=== PATIENT | female | born 1945 | race Caucasian/White ===

== ENCOUNTER → 2016-08-02 | Outpatient (CLI) | payer MEDICARE, OTHER ==
[~2016-08-02] MED LIST: ADIPEX-P37.5 MG PO; ADVIL200 MG PO; ALAVERT10 M1 PO; AMARYL 2MG T2 MG/TAB PO; ASPI325T6 PO; ASPIRIN 81M81 MG/TA2 PO; B-12 250 MCG; BENADRYL25 M2 PO; BENTYL 10MG10 MG/CAP PO; BYDUREON2MG SQ; CYMBALTA 60MG60 MG PO; HAIRSKINNAILS PO; INFANTS AQU400 IU/ML; IRON325 M1 PO; KLOR-CON 1010 MEQ PO; LASIX 20MG TABL20 MG PO; LOMOTIL 0.025 M1 TAB PO; LUTEIN6 MG; LYRICA 75MG CAP75 MG PO; MELAT3MGTAB PO; MOBIC15 MG PO; MYBETRIQ PO; MYRBETR25MG PO; NORCO 325 MG-51 TAB PO; PHENTERMINE15 MG; PLAQUENIL 200M200 MG PO; POTASSIUM GLUC550 M1 PO; PRILOSEC 20MG20 MG PO; PROTONIX 40MG T40 MG PO; SYNTHROID0.125 MG/T PO; SYNTHROID0.137 MG; SYNTHROID0.137 MG PO; SYNTHROID0.2 MG/TAB PO; ULTRAM 50MG TAB50 MG PO; VITAMINE200; ZESTRIL2.5 MG PO
== END ==
LOC: COL.RAD 10:29
DX: M25.562 Pain in left knee (principal)

== ENCOUNTER 2016-08-15 13:00 | Outpatient (RCR) | payer MEDICARE, OTHER | END 2016-08-16 | disposition home or self-care (01) | LOC: WSPT | DX: M54.89 Other dorsalgia (principal); M25.562 Pain in left knee; M25.561 Pain in right knee | CPT/HCPCS: G8978-GP; G8979-GP ==

== ENCOUNTER 2016-09-05 14:00 | Outpatient (RCR) | payer MEDICARE, OTHER | END 2016-09-23 10:24 | disposition home or self-care (01) | LOC: WSPT 14:00 | DX: M54.5 Low back pain (principal); Z98.1 Arthrodesis status | CPT/HCPCS: G8978-GP; G8979-GP; G8980-GP ==

== ENCOUNTER → 2017-07-27 | Outpatient (CLI) | payer MEDICARE, OTHER | LOC: COL.RAD 11:46 | DX: Z87.442 Personal history of urinary calculi (principal); I72.2 Aneurysm of renal artery | CPT/HCPCS: Q9967 ==

== ENCOUNTER → 2019-04-09 | Outpatient (CLI) | payer MEDICARE, OTHER | LOC: DIA.ED 02-13 09:07 | DX: E11.40 Type 2 diabetes mellitus with diabetic neuropathy, unspecified (principal); E78.5 Hyperlipidemia, unspecified; I10 Essential (primary) hypertension; E03.9 Hypothyroidism, unspecified; E66.9 Obesity, unspecified ==

== ENCOUNTER → 2019-07-16 | Outpatient (CLI) | payer MEDICARE, OTHER | LOC: MHCPAIN 10:15 | DX: M47.817 Spondylosis without myelopathy or radiculopathy, lumbosacral region (principal); M54.16 Radiculopathy, lumbar region | CPT/HCPCS: G0463 ==

== ENCOUNTER → 2019-07-25 | Outpatient (CLI) | payer MEDICARE, OTHER | LOC: MHCPAIN 10:34 | DX: M54.5 Low back pain (principal); M53.3 Sacrococcygeal disorders, not elsewhere classified ==

== ENCOUNTER → 2019-08-05 | Outpatient (CLI) | payer MEDICARE, OTHER | LOC: MHCPAIN 09:53 | DX: M53.3 Sacrococcygeal disorders, not elsewhere classified (principal); M96.1 Postlaminectomy syndrome, not elsewhere classified; M47.817 Spondylosis without myelopathy or radiculopathy, lumbosacral region; E11.9 Type 2 diabetes mellitus without complications; Z79.4 Long term (current) use of insulin | CPT/HCPCS: G0463 ==

== ENCOUNTER 2019-08-20 07:59 | Day surgery (SDC) | payer MEDICARE, OTHER ==
[~2019-08-20] VITALS: Ht 162.6 cm; Wt 131.6 kg
[2019-08-20] MEDS ORDERED: MULTAQ400 MG PO (08:54)
[2019-08-20] MEDS ORDERED: LOPRESSOR 225 MG/TAB PO (08:55)
[2019-08-20] MEDS ORDERED: XARELTO20 MG PO (08:55)
== END 2019-08-20 09:30 | disposition home or self-care (01) ==
LOC: COL.CAR 07:59
DX: I48.91 Unspecified atrial fibrillation (principal); J45.909 Unspecified asthma, uncomplicated; E78.5 Hyperlipidemia, unspecified; I10 Essential (primary) hypertension; E03.9 Hypothyroidism, unspecified; M06.862 Other specified rheumatoid arthritis, left knee; M06.861 Other specified rheumatoid arthritis, right knee; G89.29 Other chronic pain; E11.42 Type 2 diabetes mellitus with diabetic polyneuropathy; Z79.01 Long term (current) use of anticoagulants; Z85.828 Personal history of other malignant neoplasm of skin; Z88.2 Allergy status to sulfonamides; Z88.5 Allergy status to narcotic agent; Z88.1 Allergy status to other antibiotic agents; Z88.8 Allergy status to other drugs, medicaments and biological substances; Z88.0 Allergy status to penicillin; Z79.51 Long term (current) use of inhaled steroids; Z79.4 Long term (current) use of insulin; Z87.891 Personal history of nicotine dependence; Z53.8 Procedure and treatment not carried out for other reasons
CPT/HCPCS: J2704

== ENCOUNTER 2019-08-27 11:45 | Outpatient (RCR) | payer MEDICARE, OTHER ==
[~2019-08-27 11:45] MED LIST changes: +LOPRESSOR 225 MG/TAB PO; +MULTAQ400 MG PO; +XARELTO20 MG PO
== END 2019-11-04 | disposition home or self-care (01) ==
LOC: WSPT
DX: M53.3 Sacrococcygeal disorders, not elsewhere classified (principal); M96.1 Postlaminectomy syndrome, not elsewhere classified; M54.16 Radiculopathy, lumbar region; M47.817 Spondylosis without myelopathy or radiculopathy, lumbosacral region

== ENCOUNTER → 2019-11-11 | Outpatient (CLI) | payer MEDICARE, OTHER | LOC: MHCPAIN 08-15 15:59 | DX: M47.817 Spondylosis without myelopathy or radiculopathy, lumbosacral region (principal); M54.5 Low back pain; M96.1 Postlaminectomy syndrome, not elsewhere classified; M53.3 Sacrococcygeal disorders, not elsewhere classified; G89.29 Other chronic pain | CPT/HCPCS: G0463 ==

== ENCOUNTER → 2019-11-18 | Outpatient (CLI) | payer MEDICARE, OTHER | LOC: MC.RAD 09:15 | DX: R92.2 Inconclusive mammogram (principal) | CPT/HCPCS: G0279 ==

== ENCOUNTER → 2020-02-11 | Outpatient (CLI) | payer MEDICARE, OTHER | LOC: MHCPAIN 09:38 | DX: M96.1 Postlaminectomy syndrome, not elsewhere classified (principal); M54.5 Low back pain; M53.3 Sacrococcygeal disorders, not elsewhere classified; E66.01 Morbid (severe) obesity due to excess calories; E11.9 Type 2 diabetes mellitus without complications; I48.91 Unspecified atrial fibrillation ==

== ENCOUNTER → 2020-02-13 | Outpatient (CLI) | payer MEDICARE, OTHER | LOC: MHCPAIN 13:14 | DX: M47.817 Spondylosis without myelopathy or radiculopathy, lumbosacral region (principal); M54.5 Low back pain; M53.3 Sacrococcygeal disorders, not elsewhere classified ==

== ENCOUNTER → 2020-02-20 | Outpatient (CLI) | payer MEDICARE, OTHER | LOC: MHCPAIN 12:11 | DX: M47.817 Spondylosis without myelopathy or radiculopathy, lumbosacral region (principal); M54.5 Low back pain; M53.3 Sacrococcygeal disorders, not elsewhere classified; M96.1 Postlaminectomy syndrome, not elsewhere classified; G89.29 Other chronic pain | CPT/HCPCS: G0463; J3010 ==

== ENCOUNTER → 2020-02-27 | Outpatient (CLI) | payer MEDICARE, OTHER | LOC: MHCPAIN 08:32 | DX: M47.817 Spondylosis without myelopathy or radiculopathy, lumbosacral region (principal); M54.5 Low back pain | CPT/HCPCS: J2250; J3010 ==

== ENCOUNTER → 2020-05-12 | Outpatient (CLI) | payer MEDICARE, OTHER | LOC: MHCPAIN 13:08 | DX: M47.817 Spondylosis without myelopathy or radiculopathy, lumbosacral region (principal); M96.1 Postlaminectomy syndrome, not elsewhere classified; M54.5 Low back pain; G89.29 Other chronic pain | CPT/HCPCS: G0463 ==

== ENCOUNTER → 2020-06-15 | Outpatient (RCR) | payer MEDICARE, OTHER | END | disposition home or self-care (01) | LOC: WSPT → WSC 02-25 11:00 → WSPT 04-14 14:00 → WSC 04-16 13:00 → WSPT 04-24 13:00 | DX: M47.817 Spondylosis without myelopathy or radiculopathy, lumbosacral region (principal); M53.3 Sacrococcygeal disorders, not elsewhere classified; M96.1 Postlaminectomy syndrome, not elsewhere classified ==

== ENCOUNTER → 2020-08-10 | Outpatient (CLI) | payer MEDICARE, OTHER | LOC: MHCPAIN 10:16 | DX: M47.817 Spondylosis without myelopathy or radiculopathy, lumbosacral region (principal); M96.1 Postlaminectomy syndrome, not elsewhere classified; M54.5 Low back pain; G89.29 Other chronic pain | CPT/HCPCS: G0463 ==

== ENCOUNTER → 2020-11-10 | Outpatient (CLI) | payer MEDICARE, OTHER | LOC: MHCPAIN 10:28 | DX: M47.816 Spondylosis without myelopathy or radiculopathy, lumbar region (principal); M96.1 Postlaminectomy syndrome, not elsewhere classified; M53.3 Sacrococcygeal disorders, not elsewhere classified; M54.5 Low back pain | CPT/HCPCS: G0463 ==

== ENCOUNTER → 2021-03-16 | Outpatient (CLI) | payer MEDICARE, OTHER | LOC: MHCPAIN 11:13 | DX: M47.816 Spondylosis without myelopathy or radiculopathy, lumbar region (principal); M53.3 Sacrococcygeal disorders, not elsewhere classified; M79.2 Neuralgia and neuritis, unspecified; M96.1 Postlaminectomy syndrome, not elsewhere classified | CPT/HCPCS: G0463 ==

== ENCOUNTER → 2021-06-21 | Outpatient (CLI) | payer MEDICARE, OTHER | LOC: MHCPAIN 10:09 | DX: M47.817 Spondylosis without myelopathy or radiculopathy, lumbosacral region (principal); M96.1 Postlaminectomy syndrome, not elsewhere classified; M54.50 Low back pain, unspecified; M53.3 Sacrococcygeal disorders, not elsewhere classified | CPT/HCPCS: G0463 ==

== ENCOUNTER → 2021-07-13 | Outpatient (CLI) | payer MEDICARE, OTHER | LOC: MHCPAIN 12:28 | DX: M47.817 Spondylosis without myelopathy or radiculopathy, lumbosacral region (principal); M54.50 Low back pain, unspecified; M53.3 Sacrococcygeal disorders, not elsewhere classified ==

== ENCOUNTER → 2021-09-02 | Outpatient (CLI) | payer MEDICARE, OTHER | LOC: MHCPAIN 10:04 | DX: M47.817 Spondylosis without myelopathy or radiculopathy, lumbosacral region (principal); M54.50 Low back pain, unspecified; M53.3 Sacrococcygeal disorders, not elsewhere classified | CPT/HCPCS: J2250; J3010 ==

== ENCOUNTER → 2021-09-15 | Outpatient (CLI) | payer MEDICARE, OTHER | LOC: MHCPAIN 10:26 | DX: M47.896 Other spondylosis, lumbar region (principal); M53.3 Sacrococcygeal disorders, not elsewhere classified; M96.1 Postlaminectomy syndrome, not elsewhere classified; M79.2 Neuralgia and neuritis, unspecified | CPT/HCPCS: G0463 ==

== ENCOUNTER → 2022-01-12 | Outpatient (CLI) | payer MEDICARE, OTHER | LOC: MHCPAIN 10:57 | DX: M54.50 Low back pain, unspecified (principal); M47.817 Spondylosis without myelopathy or radiculopathy, lumbosacral region; M96.1 Postlaminectomy syndrome, not elsewhere classified; E11.65 Type 2 diabetes mellitus with hyperglycemia; Z79.4 Long term (current) use of insulin | CPT/HCPCS: G0463 ==

== ENCOUNTER → 2022-04-19 | Outpatient (CLI) | payer MEDICARE, OTHER | LOC: MHCPAIN 10:32 | DX: M54.50 Low back pain, unspecified (principal); M96.1 Postlaminectomy syndrome, not elsewhere classified; M47.896 Other spondylosis, lumbar region; M53.3 Sacrococcygeal disorders, not elsewhere classified | CPT/HCPCS: G0463 ==

== ENCOUNTER 2023-03-27 15:32 | Inpatient (IN) | payer MEDICARE ==
[2023-04-03] VITALS (9 sets, daily range): BP systolic 120–154; BP diastolic 56–61; PULSE 67–79; TEMP 97.5–98.5
--- NOTE | 2023-04-03 10:00 | NUR ---
PT IS A DIRECT ADMIT FROM FOR FOR AMIODARONE INITIATION WITH . PT IS AXOX4. PT IS ON RA. DAUGHTER BEDSIDE. NOTIFIED OF ARRIVAL. ADMISSION COMPLETED. PT ORIENTED TO ROOM AND FLOOR. PT INSTRUCTED TO CALL WITH ALL NEEDS AND NOT TO GET UP WITHOUT ASSISTANCE.
[2023-04-03] MEDS ORDERED: PRAVACHOL 40MG40 MG PO (10:17)
[2023-04-03] MEDS ORDERED: SPIRIVA RE2.5 MCG/Ac IH (10:17)
[2023-04-03] MEDS ORDERED: TOPROL XL 25MG25 MG PO (10:18)
[2023-04-03] MEDS ORDERED: PRILOSEC 20MG20 MG PO (10:18)
[2023-04-03] MEDS ORDERED: LANTUS SOLOS100 U/ML SQ (10:19)
[2023-04-03] MEDS ORDERED: SYNTHROID 0.10.15 MG PO (10:22)
[2023-04-03] MEDS ORDERED: GEMTESA75 MG PO (10:22)
[2023-04-03] MEDS ORDERED: GLUCOTROL 5M5 MG/TAB PO (10:23)
[2023-04-03] MEDS ORDERED: PLAQUENIL 200M200 MG PO (10:24)
[2023-04-03] MEDS ORDERED: ELIQUIS 5MG PO (10:25)
[2023-04-03] MEDS ORDERED: NIZORAL SHAMPO120 M1 TP (10:26)
[2023-04-03] MEDS ORDERED: IPRATROPIUM BROM3 M1 IH (10:27)
[2023-04-03] MEDS ORDERED: SYNALAR TP (10:30)
[2023-04-03] MEDS ORDERED: ULTRAM 50MG TAB50 MG PO (10:38)
[2023-04-03 12:21] LABS: INR 1.3 (0.8-3.0); PROTHROMBIN TIME 13.6 SECONDS (9.7-12.8)
[2023-04-03 12:32] LABS: HEMATOCRIT 39.3 % (37.0-47.0); HEMOGLOBIN 12.6 g/dl (12.5-16.0); MEAN CELL VOLUME 91 fl (80.0-100.0); MEAN CORPUSCULAR HEMOGLOBIN 29 pg (27-31); MEAN CORPUSCULAR HGB CONC 32 g/dl (33.0-37.0); MEAN PLATELET VOLUME 11.3 fl (7.4-10.4); PLATELET COUNT 208 K/mm3 (130-400); RED BLOOD COUNT 4.31 M/mm3 (4.10-5.30)
[2023-04-03 12:43] LABS: BASOPHIL 1 % (0-2); EOSINOPHIL 8 % (0-4); LYMPHOCYTE 32 % (20.0-51.0); NEUTROPHILS 51 % (42.0-75.2); PLATELET ESTIMATE NORMAL (NORMAL)
[2023-04-03 13:47] LABS: ALBUMIN 3.6 gm/dL (3.4-4.8); BILIRUBIN,TOTAL 0.5 mg/dL (0.2-1.2); CALCIUM 9.3 mg/dL (8.4-10.2); CREATININE, serum 1.3 mg/dL (0.57-1.11); TOTAL PROTEIN 7.3 gm/dL (6.2-8.1)
--- NOTE | 2023-04-03 14:48 | NUR ---
SPOKE WITH ALEXANDER IN PHARMACY REGARDING TID DOSING AND INITIAL DOSE GIVEN AROUND NOON. SHE STATED OKAY TO GIVEN SECOND DOSE AROUND 1400. PAGEIvan MIR RN WITH CARDIOLOGY TO CLARIFY OK TO GIVE SECOND DOSE AT AROUND 1500 SINCE INITIAL DOSE GIVEN AROUND 1200 AND POST EKG IS DUE AT 1600. STATES OK TO GIVE SECOND DOSE AT 1500.
--- NOTE | 2023-04-03 20:58 | NUR ---
Patient awake, alert and oriented. States she is tired after a long day. Eating dinner. Denies pain, shortness of breath or nausea. Bed in lowest position with call light within reach, denies further needs at this time.
[2023-04-04] VITALS (11 sets, daily range): BP systolic 117–176; BP diastolic 41–67; PULSE 56–78; TEMP 97.2–98.3
[2023-04-04] MEDS ORDERED: BENADRYL25 M2 PO (06:12)
--- NOTE | 2023-04-04 06:47 | NUR ---
Patient able to sleep well in the night, woke up this morning with complaints of itching. Patient assisted to bathe, lotion applied. Denies pain or shortness of breath. Bed in lowest position with call light within reach, bed alarm on.
--- NOTE | 2023-04-04 07:00 | NUR ---
PT RESTING IN BED. PT IS SLOW AFIB ON TELE. PT IS ON RA. PT IS AXOX3 AND HAS CALL LIGHT WITHIN REACH. PT INSTRUCTED TO CALL [facility] ALL NEEDS. BEDALARM ACTIVE. FALL PRECATUTIONS IN PLACE.
[2023-04-04 07:01] LABS: BASO # 0.1 K/mm3 (0.0-0.2); BASO % 1.8 % (0.0-2.0); EOS # 0.4 K/mm3 (0.0-0.7); EOS % 5.9 % (0.0-4.0); GRAN # 3.5 K/mm3 (1.4-6.5); GRAN % 57.6 % (42.2-75.2); HEMATOCRIT 37.7 % (37.0-47.0); HEMOGLOBIN 12.3 g/dl (12.5-16.0); LYMPH # 1.6 K/mm3 (1.2-3.4); LYMPH % 25.6 % (20.0-51.0); MEAN CELL VOLUME 92 fl (80.0-100.0); MEAN CORPUSCULAR HEMOGLOBIN 30 pg (27-31); MEAN CORPUSCULAR HGB CONC 33 g/dl (33.0-37.0); MEAN PLATELET VOLUME 10.6 fl (7.4-10.4); MONO # 0.5 K/mm3 (0.1-0.6); MONO % 8.8 % (1.7-9.3); PLATELET COUNT 224 K/mm3 (130-400); RED BLOOD COUNT 4.12 M/mm3 (4.10-5.30)
[2023-04-04 07:10] LABS: CREATININE, serum 1.35 mg/dL (0.57-1.11); POTASSIUM 3.9 mmol/L (3.5-4.5)
--- NOTE | 2023-04-04 09:20 | NUR ---
Initial visit; Patient thanked Weighmaster Lead for looking in on her and asking about her health, her support system and how she is coping. Sanjana speaks about her treatment today and in the future 'for A-Fib' with Dr. Ta. Sanjana understands that she is in good hands and was very glad for Weighmaster Lead's prayers.
--- NOTE | 2023-04-04 15:13 | NUR ---
LOCAL COMPANY HAZMAT DRIVER reviewed pt's clinical record and noted she was admitted yesterday for AFib. LOCAL COMPANY HAZMAT DRIVER met with pt and her daughter, Ce Richards @ the bedside to complete an intake assessment. Pt reports she is x 51 years and her , Jose (also her HCPOA) is currently in the hospital recovering from a fractured ankle he sustaind at work-he fell off a loading dock. Pt anticipates she will be discharge home before her , who is due home on Monday. Pt reports she uses a walker and is independent in her ADL's. Pt 's primary care provider is Noy Peterson PA-C, ph# [phone] and [place] [facility] [place] Pt states she does not anticipate a need for outpt services @ home, but reports she had PT/OT Services @ [facility] and was discharged 2 weeks ago. Pt reports her daughter, Ce will transport her home @ discharge and she can be reached at ph# [phone]. No other concerns noted.
--- NOTE | 2023-04-04 15:44 | NUR ---
BUSINESS OPERATIONS MANAGER reviewed pt's clinical record and noted she was admitted yesterday for SOB, fatigue and AFib. BUSINESS OPERATIONS MANAGER met with pt @ her bedside this afternoon to complete an intake assessment. Pt was oriented to person, time, place and situation. Pt reports she lives alone in an apt @ [facility], a low-income housing complex, in [place]. She is and has one adult child, a son, Hilaria, who resides in [place], # [phone]. Pt reports she uses a cane when ambulating and she is independent in her ADL's most of the time. She shared her son helps her with transportation and grocery-shopping and she had a male friend who also provided assistance, but he 2 weeks ago. Pt reports she has no HCPOA, and when asked if she would like to implement one, she declined. Pt reports her primary care provider is Dr. Gary Ta and she fills her prescriptions @ [facility] in [place]. Pt states she recently signed up with [facility], who will provide her with personal care services @ home. No other concerns noted.
--- NOTE | 2023-04-04 18:16 | NUR ---
ATTEMPTED TO CALL LODGING FACILITIES ATTENDANT, [facility], AND RADIOLOGY TO SCHEDULED CARDIOVERSION AND LOOP RECORDER FOR TOMORROW. WILL ENDORSE TO NIGHT RN TO FOLLOW UP WITH LODGING FACILITIES ATTENDANT IN THE AM SOON ABLE.
[2023-04-05] VITALS (10 sets, daily range): BP systolic 41–169; BP diastolic 41–79; PULSE 53–70; TEMP 97.4–98.3
--- NOTE | 2023-04-05 01:09 | NUR ---
pt lying in bed alert and oriented x4. pt denies chest pain and shortness of breath at this time. pt noted to have slight redness under breasts and lower abd fold. IV in LH is patent and site is clean dry and intact. pt aware of NPO diet at nc. pt has no further needs, questions, or concerns. call light within reach, will continue to monitor.
[2023-04-05 05:58] LABS: BASO # 0.1 K/mm3 (0.0-0.2); BASO % 0.9 % (0.0-2.0); EOS # 0.4 K/mm3 (0.0-0.7); EOS % 6.3 % (0.0-4.0); GRAN # 3.8 K/mm3 (1.4-6.5); GRAN % 56.3 % (42.2-75.2); HEMOGLOBIN 11.8 g/dl (12.5-16.0); LYMPH # 1.8 K/mm3 (1.2-3.4); LYMPH % 26.8 % (20.0-51.0); MEAN CELL VOLUME 92 fl (80.0-100.0); MEAN CORPUSCULAR HEMOGLOBIN 29 pg (27-31); MEAN CORPUSCULAR HGB CONC 32 g/dl (33.0-37.0); MEAN PLATELET VOLUME 11.1 fl (7.4-10.4); MONO # 0.7 K/mm3 (0.1-0.6); MONO % 9.6 % (1.7-9.3); PLATELET COUNT 218 K/mm3 (130-400); RED BLOOD COUNT 4.02 M/mm3 (4.10-5.30); REDCELL DISTRIBUTION WIDTH-CV 13.2 % (11.5-14.5)
[2023-04-05 06:01] LABS: HEMATOCRIT 36.8 % (37.0-47.0)
[2023-04-05 06:15] LABS: CREATININE, serum 1.29 mg/dL (0.57-1.11); MAGNESIUM 2.1 mg/dL (1.6-2.6); POTASSIUM 3.6 mmol/L (3.5-4.5)
--- NOTE | 2023-04-05 19:33 | NUR ---
Patient off unit for majority of shift for pulmonary function test and in lab engineer getting cardioversion and pacemaker placement. Patient stable following return from lab engineer. VS elevated initially, but have since remained in 140s/60s. Patient tolerating food and fluids well. Denies pain at this time. Ice bag provided to pacemaker incision site at left side of chest. Gauze CDI. Patient handoff complete at this time to nightshift.
--- NOTE | 2023-04-05 22:22 | NUR ---
patient lying in bed alert and oriented x4. pt denies chest pain/discomfort and shortness of breath at this time. pt report slight tenderness around chest insertion site. left chest site is clean dry and intact with a guaze dressing. sling applied to the left arm. IV in LH is patent, site is clean dry and intact. at this time pt is unable to finding glasses, bedding in the room and other pt belongings checked with no finding. warehouse shipper notified, will check mobile home laborer for pt's glasses. pt has some redness and discoloration of the bilateral lower extremities below the calves, no tenderness or warmth reported. slight redness under breasts and lower abd fold. pt has no futher needs, questions, or concerns at this time. call light within reach, will continue to monitor.
[2023-04-06 00:12] VITALS: BP_SYST 121
[2023-04-06 03:21] VITALS: BP 104/36; PULSE 70; TEMP 97.4
[2023-04-06 04:14] VITALS: BP_SYST 104
[2023-04-06 05:37] LABS: BASO # 0.1 K/mm3 (0.0-0.2); BASO % 0.8 % (0.0-2.0); EOS # 0.5 K/mm3 (0.0-0.7); EOS % 6.5 % (0.0-4.0); GRAN # 4.7 K/mm3 (1.4-6.5); HEMOGLOBIN 10.8 g/dl (12.5-16.0); LYMPH # 1.6 K/mm3 (1.2-3.4); LYMPH % 21.5 % (20.0-51.0); MEAN CELL VOLUME 93 fl (80.0-100.0); MEAN CORPUSCULAR HEMOGLOBIN 29 pg (27-31); MEAN CORPUSCULAR HGB CONC 31 g/dl (33.0-37.0); MEAN PLATELET VOLUME 10.8 fl (7.4-10.4); MONO # 0.7 K/mm3 (0.1-0.6); MONO % 8.9 % (1.7-9.3); PLATELET COUNT 210 K/mm3 (130-400); RED BLOOD COUNT 3.71 M/mm3 (4.10-5.30); REDCELL DISTRIBUTION WIDTH-CV 13.2 % (11.5-14.5)
[2023-04-06 05:41] LABS: HEMATOCRIT 34.6 % (37.0-47.0)
[2023-04-06 05:56] LABS: CREATININE, serum 1.25 mg/dL (0.57-1.11); POTASSIUM 3.8 mmol/L (3.5-4.5)
[2023-04-06 07:16] VITALS: BP 125/36; PULSE 98; TEMP 97.4
--- NOTE | 2023-04-06 10:49 | NUR ---
Patient alert and oriented x4 this morning. Shift assessment complete, no new variances noted. Patient denies increase in pain this morning. Dressing to pacemaker site CDI. Ice pack provided. Pacemaker downloaded this morning. Patient tolerating meals and medications well. Voices no concerns. Patient in bed with call light in reach.
[2023-04-06 11:04] VITALS: BP 106/46; PULSE 70; TEMP 98.1
[2023-04-06] MEDS ORDERED: PACERONE400 MG PO (11:44)
--- NOTE | 2023-04-06 14:54 | NUR ---
Discharge instructions discussed with patient including pacemaker incision site care, follow-up appointments, medication changes, Eliquis resume date, and education packets. Patient verbalized understanding. IV discontinued to left hand with no complications. Telemetry off. Patient escorted out by family and staff via wheelchair.
== END 2023-04-06 14:50 | disposition home or self-care (01) | DRG 310 ==
LOC: MEDICAL 04-03 09:16
PROVIDERS: ADMIT Internal Medicine Cardiovascular Disease
DX: I48.91 Unspecified atrial fibrillation (principal); I49.5 Sick sinus syndrome; Z95.0 Presence of cardiac pacemaker
CPT/HCPCS: A9270; J0665; J1815; J2250; J2704; J3010; J3370; J7030; J7050; Q9967